=== PATIENT | male | born 2000 | race Caucasian/White ===

== ENCOUNTER 2025-01-07 15:47 | Emergency (ER) | payer OTHER ==
[~2025-01-07] VITALS: Ht 182.9 cm; Wt 78.6 kg
[2025-01-07 17:20] VITALS: BP 116/74; TEMP 99; O2SAT 99
== END 2025-01-07 17:22 | disposition home or self-care (01) ==
LOC: M ED 15:47
DX: S06.0X0A Concussion without loss of consciousness, initial encounter (principal); V00.321A Fall from snow-skis, initial encounter; Y92.39 Other specified sports and athletic area as the place of occurrence of the external cause; Y93.23 Activity, snow (alpine) (downhill) skiing, snowboarding, sledding, tobogganing and snow tubing; Y99.9 Unspecified external cause status